=== PATIENT | male | born 1980 | race African-American/Black ===

== ENCOUNTER 2020-02-23 22:34 | Emergency (ER) | payer SELFPAY ==
[~2020-02-23] VITALS: Ht 167.6 cm; Wt 67.0 kg
[2020-02-23 22:39] VITALS: BP 129/83
[2020-02-23] MEDS ORDERED: KETOROLAC 30 MG/1 ML IM ONE (23:00)
[2020-02-23] MEDS ORDERED: KETOROLAC 30 MG/1 ML ONE (23:08)
== END 2020-02-24 00:13 | disposition home or self-care (01) ==
LOC: ED 23:15
DX: M79.645 Pain in left finger(s) (principal); W18.30XA Fall on same level, unspecified, initial encounter; Y93.89 Activity, other specified; Y92.89 Other specified places as the place of occurrence of the external cause; Y99.8 Other external cause status
CPT/HCPCS: 29130; 73130; 96372; 99283; J1885